=== PATIENT | female | born 1980 | race Native Hawaiian/Other Pacific Islander ===

== ENCOUNTER 2019-09-16 16:54 | Emergency (ER) | payer OTHER ==
[~2019-09-16] VITALS: Ht 157.5 cm; Wt 66.7 kg
[2019-09-16 17:15] VITALS: BP 137/81; TEMP 99.1
== END 2019-09-16 18:56 | disposition home or self-care (01) ==
LOC: ED 16:54
DX: H66.92 Otitis media, unspecified, left ear (principal); F17.210 Nicotine dependence, cigarettes, uncomplicated
CPT/HCPCS: 96372; 99282; J1885